=== PATIENT | female | born 1970 | race Caucasian/White ===

== ENCOUNTER 2016-07-06 08:09 | Day surgery (SDC) | payer OTHER ==
[2016-07-05 13:06] VITALS: BMI 29.0
[2016-07-06 08:34] VITALS: TEMP 98.6
[2016-07-06] MEDS ORDERED: LIDOCAINE HCL 1%, 10 MG/ML (20ML VIAL) ONE (09:28)
[2016-07-06] MEDS ORDERED: LIDOCAINE HCL 1%, 10 MG/ML (50 mL VIAL) IJ ONE (11:40)
[2016-07-06] MEDS ORDERED: LIDOCAINE HCL 1%, 10 MG/ML (50 mL VIAL) INF ONE (11:40)
[2016-07-06 12:48] VITALS: BP 127/88; PULSE 74
--- NOTE | 2016-07-07 07:20 | OP ---
DATE OF OPERATION: 07/06/2016 PREOPERATIVE DIAGNOSIS: Left breast mass. POSTOPERATIVE DIAGNOSIS: Left breast mass. PROCEDURE: Excision of left breast mass under ultrasound guidance. SURGEON: Mariam Caldwell MD ANESTHESIA: Local. COMPLICATIONS: None. DISPOSITION: Stable. INDICATIONS FOR PROCEDURE: Patient presented with a palpable mass in the left breast 3 o'clock retroareolar location. This was in a needle biopsy that was benign previously. However, on ultrasound appeared to be increasing in size. Therefore, recommendation was an excision. The procedure was discussed and all her questions answered. PROCEDURE IN DETAIL: Patient was brought to [facility], taken into the operating room, and after I performed an intraoperative ultrasound to localize the lesion in the left breast 3 o'clock retroareolar location the left breast was then prepped and draped in the usual sterile fashion. The area was anesthetized with 1% lidocaine without epinephrine. A periareolar incision was made in the outer left breast and the mass was excised en bloc and sent for permanent section in formalin. Hemostasis assured with electrocautery. The parenchyma approximated with interrupted 2-0 Vicryl. Skin approximated with interrupted 3-0 Vicryl and running 4-0 Prolene. A sterile dressing with Tegaderm, 4 x 4s applied. She tolerated procedure well and left the operating room in good condition. MARIAM CALDWELL M.D. [id number]
--- NOTE | 2016-07-11 13:46 | PATH ---
Surgical Pathology Report Patient Name: TOM TABARES Med. Rec. #: [id number] /Age/Gender: 1970 (Age: 45) / F Account: [id number] Location: [facility] SURGICAL Taken: 07/06/2016 Received: 07/06/2016 Reported: 07/11/2016 Physicians: Mariam Quan M.D. 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 FOCAL CHANGES SUGGESTIVE OF PRIOR BIOPSY SITE SEEN. SURROUNDING BREAST TISSUE WITH FIBROCYSTIC CHANGE WITH FOCAL DUCT DILATATION AND STROMAL FIBROSIS. Comment: Papilloma appears completely excised. Immunohistochemical stain for ER performed and interpreted at [facility] on block #3 shows partial ER staining, supporting the interpretation above. Electronically Signed Rik Chapman M.D. Gross Description Received in formalin labeled "left breast excision of mass" is a 1.8 x 1.7 x 1.2 cm irregular, unoriented portion of fibroadipose tissue. There is no needle localization wire present. There is no skin or nipple present. The specimen is inked blue and serially sectioned. Sectioning reveals focally firm fibrous tissue. No definitive mass is identified. The specimen is serially sectioned and entirely and sequentially submitted in 5 cassettes. Time to fixation: not indicated Total formalin fixation time: ~6h DL/07/06/2016 saudi/07/06/2016
== END 2016-07-06 12:50 | disposition home or self-care (01) ==
LOC: JASU-SURG 08:09
PROVIDERS: ATTEND Surgery
PROC: 0HBU0ZX Excision of Left Breast, Open Approach, Diagnostic (ICD-10-PCS; principal; 2016-07-06 11:00)
DX: D48.62 Neoplasm of uncertain behavior of left breast (principal)
CPT/HCPCS: 88307-TC; 88342-TC

== ENCOUNTER 2020-01-27 09:39 | Day surgery (SDC) | payer OTHER ==
[2020-01-27 09:38] VITALS: BMI 30.7
[2020-01-27] MEDS ORDERED: LIDOCAINE HCL/PF 2% SDV 5ML VIAL ONE (11:07)
[2020-01-27] MEDS ORDERED: PROPOFOL 20 ML ONE ×2 (11:07)
[2020-01-27 11:55] VITALS: BP 106/78; PULSE 69; TEMP 98
== END 2020-01-27 11:55 | disposition home or self-care (01) ==
LOC: FASU-ENDO 09:39
PROVIDERS: ATTEND Internal Medicine Gastroenterology
PROC: 0DBN8ZX Excision of Sigmoid Colon, Via Natural or Artificial Opening Endoscopic, Diagnostic (ICD-10-PCS; 2020-01-27)
PROC: 0DBM8ZX Excision of Descending Colon, Via Natural or Artificial Opening Endoscopic, Diagnostic (ICD-10-PCS; 2020-01-27)
PROC: 0DBK8ZX Excision of Ascending Colon, Via Natural or Artificial Opening Endoscopic, Diagnostic (ICD-10-PCS; principal; 2020-01-27 10:54)
DX: Z12.11 Encounter for screening for malignant neoplasm of colon (principal); D12.2 Benign neoplasm of ascending colon; D12.4 Benign neoplasm of descending colon; D12.5 Benign neoplasm of sigmoid colon; D12.7 Benign neoplasm of rectosigmoid junction; K64.1 Second degree hemorrhoids
CPT/HCPCS: 84703; 88305-TC

== ENCOUNTER 2023-05-29 10:18 | Day surgery (SDC) | payer BC ==
[2023-05-23 13:49] VITALS: BMI 32.8
[2023-05-29 12:13] VITALS: TEMP 97.6
[2023-05-29 12:14] VITALS: BP 100/68; PULSE 75; RESP 19
== END 2023-05-29 12:25 | disposition home or self-care (01) ==
LOC: FASU-ENDO 10:18
PROVIDERS: ATTEND Internal Medicine Gastroenterology
PROC: 0DBN8ZX Excision of Sigmoid Colon, Via Natural or Artificial Opening Endoscopic, Diagnostic (ICD-10-PCS; principal; 2023-05-29 11:35)
DX: Z12.11 Encounter for screening for malignant neoplasm of colon (principal); K63.5 Polyp of colon; K64.1 Second degree hemorrhoids; Z86.010 Personal history of colon polyps
CPT/HCPCS: 88305-TC